=== PATIENT | female | born 1970 ===

== ENCOUNTER 2024-05-14 11:35 | Outpatient (AMB) | payer OTHER, SELFPAY ==
--- NOTE | 2024-05-14 11:45 | AM.OFFWIN_ITS ---
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 While every effort has been made to ensure accuracy, seat cover maker errors may have been included. The patient is a 54 year old female who presents to the clinic today with request for suture removal from her right hand, which were placed May 06 after a work-related injury at [facility]. 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 She denies redness, warmth, discharge, pain to the area, or any reduced strength. [facility] Social History Patient Tobacco Use Status: Never used Tobacco Review of Systems Const All systems reviewed & are unremarkable except as noted in HPI and below Physical Exam Vital Signs: Last Vital Signs Pulse 72 05/14/24 11:46 BP 100/70 05/14/24 11:46 Pulse Ox 96 05/14/24 11:46 Oxygen Delivery Method Room Air 05/14/24 11:46 BMI result Body Mass Index 35.7 Const General: cooperative, healthy appearing, comfortable, no acute distress and well developed Orientation/consciousness: patient oriented x3 Limitations: no limitations Resp Effort & Inspection: normal respiratory effort and able to speak in complete sentences Skin Other: Four interrupted sutures present to right hand dorsal aspect, removed, patient tolerated procedure well. Wound not fully resolved, additional Steri-Strips placed over wound. Dry dressing placed on top. Neuro General: patient oriented x3 Assessment & Plan Assessment & Plan (1) Visit for suture removal: Code(s): Z48.02 - Encounter for removal of sutures Plan: Sutures removed, unfortunately the wound has not completely resolved periods additional Steri-Strips placed over the wound, and advised patient not to apply anything to the wound. Advised patient to keep the area clean and dry, dressing applied. Letter provided for restrictions for returned to work. Advised follow up with any erythema, particularly erythematous streaking, or warmth, or disch arge. Plan See above for full details and plan. Coding Level of Care Code Est Pt Level 3 (79167) Diagnoses Visit for suture removal Z48.02
[2024-05-14 11:46] VITALS: BP 100/70; PULSE 72; O2SAT 96; BMI 35.7
== END 2024-05-14 12:43 | disposition home or self-care (01) ==
PROVIDERS: Visit Provider Registered Nurse
DX: S61.401A Unspecified open wound of right hand, initial encounter (principal); Z48.02 Encounter for removal of sutures; Z04.2 Encounter for examination and observation following work accident

== ENCOUNTER → 2024-05-14 11:35 | Outpatient (BNVA) | payer OTHER, SELFPAY | DX: Z48.02 Encounter for removal of sutures (principal) | CPT/HCPCS: 99212 ==